=== PATIENT | male | born 1970 | race Hispanic/Latino ===

== ENCOUNTER 2017-02-10 06:10 | Day surgery (SDC) | payer MEDICAID ==
[2017-02-10 06:35] VITALS: BMI 19.8
[2017-02-10] MEDS ORDERED: Lactated Ringer's 500 ML IV SCH (08:00)
[2017-02-10] MEDS ORDERED: Propofol 10 mg/ml Inj (20 ML) ONE ×3 (08:02→08:36)
[2017-02-10 09:16] VITALS: RESP 16; TEMP 97.8
[2017-02-10 09:46] VITALS: O2SAT 100
[2017-02-10 10:12] VITALS: BP 101/62; PULSE 57
== END 2017-02-10 10:07 | disposition home or self-care (01) ==
LOC: C.ENDO 06:10
PROVIDERS: ATTEND Internal Medicine
DX: K86.1 Other chronic pancreatitis (principal); K29.70 Gastritis, unspecified, without bleeding
CPT/HCPCS: 43237; J2704; J3010; J7120

== ENCOUNTER 2017-02-27 06:57 | Inpatient (IN) | payer MEDICAID ==
[2017-02-27 06:57] VITALS: BMI 19.8
--- NOTE | 2017-02-27 07:33 | C.PDOC ---
History Of Present Illness 46 y/o male with cad, s/p 2 stents in October 2016, hx etoh abuse (stopped drinking) and chronic pancreatitis presents with mild epigastric pain. denies cp and sob. pt for admission for treatment with integrillin pre-precedure tomorrow for pancreatic biopsy. no fever or chills. Time Seen by Provider: 02/27/17 07:11 Chief Complaint (Nursing): Abdominal Pain History Per: Patient History/Exam Limitations: no limitations Current Symptoms Are (Timing): Still Present Severity: Mild Pain Scale Rating Of: 3 Location Of Pain/Discomfort: Epigastric Radiation Of Pain To:: None Quality Of Discomfort: Sharp Associated Symptoms: denies: Fever, Chills, Nausea, Vomiting, Diarrhea Recent travel outside of the [place]: No Past Medical History Reviewed: Historical Data, Nursing Documentation, Vital Signs Vital Signs: Last Vital Signs Temp 98.5 F 02/27/17 07:05 Pulse 64 02/27/17 07:05 Resp 20 02/27/17 07:05 BP 117/70 02/27/17 07:05 Pulse Ox 100 02/27/17 07:41 - Medical History PMH: CAD, Hypercholesterolemia, Pancreatitis (2013) Denies: HIV, Chronic Kidney Disease Surgical History: Coronary Stent (x2) - [facility] Procedures ALCOHOL DETOXIFICATION (10/06/13) DILATION OF 1 COR ART WITH 2 DRUG-ELUT, PERC APPROACH (09/30/16) FLUOROSCOPY OF LEFT HEART USING LOW OSMOLAR CONTRAST (09/30/16) FLUOROSCOPY OF MULT COR ART USING L OSM CONTRAST (09/30/16) MEASURE OF CARDIAC SAMPL & PRESSURE, L HEART, PERC APPROACH (09/30/16) Family History: States: Unknown Family Hx - Social History Hx Tobacco Use: Yes Hx Alcohol Use: No (stopped) Hx Substance Use: No - Immunization History Hx Influenza Vaccination: No Review Of Systems Constitutional: Negative for: Fever, Chills Cardiovascular: Negative for: Chest Pain, Palpitations Respiratory: Negative for: Cough, Shortness of Breath Gastrointestinal: Positive for: Abdominal Pain (mild, epigastric). Negative for : Nausea, Vomiting Genitourinary: Negative for: Dysuria Neurological: Negative for: Weakness, Numbness Physical Exam - Physical Exam Appears: Non-toxic, No Acute Distress Skin: Normal Color, Warm, Dry Head: Atraumatic, Normacephalic Eye(s): bilateral: Normal Inspection Teeth: Other (poor dentition, partly edentulous) Cardiovascular: Rhythm Regular, No Murmur Respiratory: Normal Breath Sounds, No Accessory Muscle Use, No Rales, No Rhonchi , No Wheezing Gastrointestinal/Abdominal: Bowel Sounds, Soft, Tenderness (minimal tenderness in epgastric area), No Distention, No Guarding, No Rebound Extremity: Normal ROM, No Pedal Edema, No Calf Tenderness Neurological/Psych: Oriented x3, Normal Speech, Normal Cognition ED Course And Treatment - Laboratory Results Result Diagrams: 02/27/17 07:44 02/27/17 08:29 O2 Sat by Pulse Oximetry: 100 Medical Decision Making Medical Decision Making: discussed with Dr Sesay pt to be admitted to hospitalist for treatment with integrillin prior to pancreatic biopsy. Disposition Discussed With : Benita Pickering Doctor Will See Patient In The: Hospital - Disposition Disposition: HOSPITALIZED Disposition Time: 09:26 Condition: STABLE Forms: [facility]- [employer] [employer] [facility] (Nicaraguan) - Clinical Impression Clinical Impression: Abdominal pain, Pancreatic abnormality Decision To Admit - Pt Status Changed To: Hospital Disposition Of: Inpatient - Admit Certification Admit to Inpatient:: After my assessment, the patient will require hospitalization for at least two midnights. This is because of the severity of symptoms shown, intensity of services needed, and/or the medical risk in this patient being treated as an outpatient. - InPatient: Physician Admission Certification:: pt requires iv integrillin pre-procedure - . Bed Request Type: Telemetry Patient Diagnosis: Abdominal pain, Pancreatic abnormality
[2017-02-27 07:54] LABS: BASO # 0.1 K/uL (0.0-0.2); BASO % 0.8 % (0.0-2.0); EOS # 0.3 K/uL (0.0-0.7); EOS % 3.4 % (0.0-4.0); LYMPH # 4.3 K/uL (1.0-4.3); LYMPH % 43.3 % (20.0-40.0); MEAN CELL VOLUME 87.3 fL (80.0-94.0); MEAN CORPUSCULAR HEMOGLOBIN 28.9 pg (27.0-31.0); MEAN CORPUSCULAR HGB CONC 33.1 g/dL (33.0-37.0); MEAN PLATELET VOLUME 9.7 fL (7.2-11.7); MONO # 0.9 K/uL (0.0-0.8); MONO % 8.9 % (0.0-10.0); RED CELL DISTRIBUTION WIDTH 13.7 % (11.5-14.5); WHITE BLOOD COUNT 9.9 K/uL (4.8-10.8)
[2017-02-27 08:41] LABS: CHLORIDE 100 mmol/L (98-107)
[2017-02-27 08:42] LABS: POTASSIUM 3.7 mmol/L (3.6-5.2); SODIUM 142 mmol/L (132-148)
[2017-02-27 08:44] LABS: ALB/GLOB RATIO 1.3 (1.0-2.1); ALKALINE PHOSPHATASE 78 U/L (38-126); ALT/SGPT 26 U/L (21-72); AST/SGOT 19 U/L (17-59); BILIRUBIN,TOTAL 0.4 mg/dL (0.2-1.3); BLOOD UREA NITROGEN 9 mg/dL (9-20); CARBON DIOXIDE 29 mmol/L (22-30); GFR AFRICAN-AMERICAN > 60; GLUCOSE,RANDOM 95 mg/dL (75-110); TOTAL PROTEIN 6.8 g/dL (6.3-8.3)
[2017-02-27 08:45] LABS: CALCIUM 8.4 mg/dl (8.6-10.4)
[2017-02-27 09:20] LABS: CA 19-9 7.1 U/mL (0-37)
[2017-02-27] MEDS ORDERED: Eptifibatide 20 mg/10mL Inj IVP ONE (09:37)
[2017-02-27] MEDS ORDERED: Sodium Chloride 0.9% 500 ML IV ONE ×2 (10:00→10:06)
--- NOTE | 2017-02-27 10:12 | CP.PCM.PN ---
Subjective - Date & Time of Evaluation Date of Evaluation: 02/27/17 Time of Evaluation: 10:10 - Subjective Subjective: Medicine Note- Dr Pickering's service 46 year old male with PMHx of CAD s/p IN with stents, hx of past EtOH abuse, pancreatitis, and pancreatic mass presents to the ED for administration of integrillin for pancreatic biopsy tomorrow. Patient has been following with GI Dr Sesay as outpatient and is scheduled for procedure tomorrow with him. The patient stopped taking his Brilinta 4 days ago as instructed. Per patient, he was told by GI that he has a pancreatic mass on the tail of his pancreas that needs further workup. Patient currently denies abdominal pain, chest pain, nauesa, vomiting, diarrhea, palpitations, dizziness, headache, focal weakness, difficulty ambulating, change in vision, and recent illness. GI: Dr Sesay Cardio: Dr Lees PMHx: Pancreatitis, CAD (with 2 stents placed in 09/2016), hx EtOH abuse, tobacco abuse Meds: Lisinopril 2.5mg PO daily, ASA 81mg PO daily, Brilinta 90mg PO BID, Creon [id number] TID, Zofran 4mg PO prn nausea, Crestor 20mg PO HS, Ultram 50mg PO q8h prn pain Surgical Hx: Cath with [address] at [facility] 09/2016 Social Hx: Tobacco- smokes 1/2ppd x 25 years; Former EtOH Abuser (quit 1 year ago); denies illicit drug use. Works in general construction. Allergies: NKDA Objective - Vital Signs/Intake and Output Vital Signs (last 24 hours): Temp Pulse Resp BP Pulse Ox 98.5 F 59 L 19 97/68 L 98 02/27/17 07:05 02/27/17 09:56 02/27/17 09:56 02/27/17 09:56 02/27/17 09:56 - Medications Medications: Current Medications Eptifibatide (Integrilin) 75 mg in 100 mls @ 10.897 mls/hr IV .Q9H11M [facility] PRN Reason: 2 MCG/KG/MIN Sodium Chloride (Sodium Chloride 0.9%) 500 mls @ 1,000 mls/hr IV .Q30M ONE Stop: 02/27/17 10:35 Last Admin: 02/27/17 10:00 Dose: 1,000 mls/hr - Labs Labs: PT 10.8 SECONDS (9.7-12.2) 02/27/17 07:44 INR 1.0 02/27/17 07:44 APTT 33 SECONDS (21-34) 02/27/17 07:44 - Constitutional Appears: Non-toxic, No Acute Distress - Head Exam Head Exam: ATRAUMATIC, NORMOCEPHALIC - Eye Exam Eye Exam: EOMI, Normal appearance, PERRL Pupil Exam: NORMAL ACCOMODATION - ENT Exam ENT Exam: Mucous Membranes Moist, Normal Exam - Neck Exam Neck Exam: Normal Inspection - Respiratory Exam Respiratory Exam: Clear to Ausculation Bilateral, NORMAL BREATHING PATTERN. absent: Rales, Rhonchi, Wheezes, Respiratory Distress - Cardiovascular Exam Cardiovascular Exam: REGULAR RHYTHM, +S1, +S2. absent: Bradycardia, Tachycardia , Irregular Rhythm, Murmur - GI/Abdominal Exam GI & Abdominal Exam: Soft, Tenderness (mild ttp in left lower quadrant ), Normal Bowel Sounds. absent: Distended, Firm, Guarding, Rigid - Extremities Exam Extremities Exam: Full ROM, Normal Inspection. absent: Joint Swelling, Pedal Edema, Tenderness - Back Exam Back Exam: NORMAL INSPECTION - Neurological Exam Neurological Exam: Alert, Awake, CN II-XII Intact, Oriented x3 - Psychiatric Exam Psychiatric exam: Normal Affect, Normal Mood - Skin Skin Exam: Dry, Intact, Normal Color, Warm Assessment and Plan - Assessment and Plan (Free Text) Assessment: 1. Pancreatic mass * GI Dr Sesay consulted- pt pending biopsy of pancreatic mass tomorrow. Will follow up recommendations. * NPO after dinner tonight * Pt on IV Integrilin for antiplatelet therapy * Lipase elevated 2. CAD s/p IN with 2 stents * Dr Lees consulted for pre-operative cardiac clearance- help appreciated, will f/u recommendations * Continue holding Brilinta for invasive procedure. Will f/u with hole digger operator regarding post-op antiplatelet therapy. * EKG: NSR, no acute ischemic changes * 09/30/16 ECHO reviewed- LV EF >65% * Hold ASA for procedure * Continue Lisinopril and Crestor 3. Tobacco use disorder * Counseled on smoking cessation * Nicotine patch TD daily 4. Prophylactic measures * Hold chemical anticoagulation until cleared by GI/Cardio * SCDs * Activity as tolerated * Pepcid 20mg PO BID
[2017-02-27] MEDS: Eptifibatide 0.75 mg/ml 75 MG/100 ML BOTTLE IV SCH ×2 (10:38→18:26)
--- NOTE | 2017-02-27 12:42 | CP.PCM.CON ---
History of Present Illness - History of Present Illness History of Present Illness: 46 y/o chronic smoker, poor dentition and history of pancreatitis in past presents with hx of abdominal pain and pancreatic mass which will need GI invasive evaluation and biopsy. In september Presented with acute [facility] EKG showed infero-posterior STEMI and had urgent cath showing: LM: Normal LAD: luminal irregularities LCX: SUB total occlusion of the distal LCX with AUREA 1-2 flow distally RCA: non-dominant EF: Low normal 50-55% He was RX:with a 2 KATE stents ([id number] xience, 3.0x15 xience) Post procedure results showed well apposed stents with excellent AUREA [address] elevation and CP. He has been on DAPT with ASA and Brillinta for his prior stent and has dc'd it for the past 4 days in anticipation for GI invasive procedure. Integrilin has been started as a means to continue anti-platelet inhibition. Review of Systems - Review of Systems All systems: reviewed and no additional remarkable complaints except Past Patient History - Past Medical History & Family History Past Medical History?: Yes - Past Social History Smoking Status: Light Smoker < 10 Cigarettes Daily - CARDIAC Hx Hypercholesterolemia: Yes - PULMONARY Hx Respiratory Disorders: No - NEUROLOGICAL Hx Neurological Disorder: No - HEENT Hx HEENT Problems: No - RENAL Hx Chronic Kidney Disease: No - ENDOCRINE/METABOLIC Hx Endocrine Disorders: No - HEMATOLOGICAL/ONCOLOGICAL Hx Human Immunodeficiency Virus (HIV): No - INTEGUMENTARY Hx Dermatological Problems: No - MUSCULOSKELETAL/RHEUMATOLOGICAL Hx Musculoskeletal Disorders: No Hx Falls: No - GASTROINTESTINAL Hx Pancreatitis: Yes (2014) - GENITOURINARY/GYNECOLOGICAL Hx Genitourinary Disorders: No - PSYCHIATRIC Hx Substance Use: No - SURGICAL HISTORY Hx Coronary Stent: Yes (x2) - ANESTHESIA Hx Anesthesia: No Hx Anesthesia Reactions: No Meds Allergies/Adverse Reactions: Allergies Allergy/AdvReac Type Severity Reaction Status Date / Time No Known Allergies Allergy Verified 02/27/17 07:06 - Medications Medications: Current Medications Famotidine (Pepcid) 20 mg PO BID [facility] Home Med (Lipase/Protease/Amylase [Atilio Thapa 36,000 Units Capsule]) 1 each PO TID [facility] Eptifibatide (Integrilin) 75 mg in 100 mls @ 10.897 mls/hr IV .Q9H11M [facility] PRN Reason: 2 MCG/KG/MIN Stop: 02/28/17 02:00 Last Admin: 02/27/17 10:38 Dose: 10.897 mls/hr Lisinopril (Zestril) 2.5 mg PO DAILY [facility] Ondansetron HCl (Zofran Inj) 4 mg IVP Q6 PRN PRN Reason: Nausea/Vomiting Rosuvastatin Calcium (Crestor) 20 mg PO HS [facility] Physical Exam - Constitutional Appears: No Acute Distress - Head Exam Head Exam: ATRAUMATIC, NORMAL INSPECTION, NORMOCEPHALIC - Eye Exam Eye Exam: EOMI, Normal appearance, PERRL - ENT Exam ENT Exam: absent: Normal Oropharynx (poor dentition) - Neck Exam Neck exam: Positive for: Full Rom. Negative for: Tenderness, Thyromegaly - Respiratory Exam Respiratory Exam: Clear to Auscultation Bilateral. absent: Rhonchi, Wheezes - Cardiovascular Exam Cardiovascular Exam: REGULAR RHYTHM, +S1, +S2. absent: +S4, Systolic Murmur - GI/Abdominal Exam GI & Abdominal Exam: Normal Bowel Sounds, Soft. absent: Organomegaly - Extremities Exam Extremities exam: Positive for: normal inspection. Negative for: calf tenderness, pedal edema - Neurological Exam Neurological exam: Alert, Normal Gait, Oriented x3 - Psychiatric Exam Psychiatric exam: Normal Affect, Normal Mood - Skin Skin Exam: Normal Color, Warm Results - Vital Signs Recent Vital Signs: Last Vital Signs Temp 97.8 F 02/27/17 11:55 Pulse 54 L 02/27/17 11:55 Resp 16 02/27/17 11:55 BP 109/73 02/27/17 11:55 Pulse Ox 100 02/27/17 11:55 - Labs Result Diagrams: 02/27/17 07:44 02/27/17 08:29 - EKG Data EKG Interpreted by: Myself EKG shows normal: Sinus rhythm (No acute ischemic changes) Assessment & Plan - Assessment and Plan (Free Text) Assessment: 1. Preoperative eval for managment of anti-platelet therapy due to presence of drug eluting stent since Sep 2016 (After Acute inf-posterior STEMI) 2. Pancreatic lesion needing invasive GI eval and possible biopsy 3. No CP or CHF on exam: Known normal LV function 4. EKG: NSR, no acute ischemic changes 5. H/H and renal function WNL; inc Lipase; normal AST/ALT Plan: > Cont integrilin infusion: D/C 6 hours prior to planned GI procedure and resume 6 hours post procedure if clinically safe. > I suggest ASA 81 be continued if ok with GI > BP is normal ; but suggest metoprolol 25 daily given [place] < 1year ago > Continue Statin therapy and GI prophylaxis > Brillinta will need to be reloaded when he is ok to take prior to D/C.
[2017-02-27] MEDS ORDERED: PROTEASE PO SCH (14:00)
[2017-02-27] MEDS ORDERED: LIPASE PO SCH (14:00)
[2017-02-27] MEDS ORDERED: AMYLASE PO SCH (14:00)
--- NOTE | 2017-02-27 14:44 | CP.PCM.CON ---
<Latonya Tripp - Last Filed: 02/27/17 14:45> History of Present Illness - History of Present Illness History of Present Illness: GI Fellow PGY4 Consult Note This is a 46yM with pmhx significant for EtOH abuse, multiple prior episodes of alcohol induced pancreatitis, CAD, SD s/p PCI with 2 stents placed in October 2016 , admitted for pancreatic tail mass. He denies any recent EtOH use and has been sober for 16 months. Pt does report weight loss of 12pounds over 2 months as food intake would cause abdominal pain, however says he is eating better now as pain is not as severe. Pt had EUS on 02/10/17 and found to have an irregular mass in pancreatic tail, hypoechoic [id number]. At that time, no biopsy was done since pt was on Brillinta therapy for cardiac stents. Pt is now admitted for EUS tomorrow in coordination with Cardiology. Pt's Brillinta as been on hold (pt 's last dose Friday), Integrilin has been started as a means to continue anti- platelet inhibition which will be stopped 6hrs prior to procedure. PMHx: See HPI PSHx: PCI with 2 stents placed October 2016 FHx: Mother -DM, HTN; Father -DM, HTN SHx: 1/2ppd for 20yrs, sober 16 months-used to drink [id number] cans of beer everyday for 5 years Past Patient History - Past Medical History & Family History Past Medical History?: Yes - Past Social History Smoking Status: Light Smoker < 10 Cigarettes Daily - CARDIAC Hx Hypercholesterolemia: Yes - PULMONARY Hx Respiratory Disorders: No - NEUROLOGICAL Hx Neurological Disorder: No - HEENT Hx HEENT Problems: No - RENAL Hx Chronic Kidney Disease: No - ENDOCRINE/METABOLIC Hx Endocrine Disorders: No - HEMATOLOGICAL/ONCOLOGICAL Hx Human Immunodeficiency Virus (HIV): No - INTEGUMENTARY Hx Dermatological Problems: No - MUSCULOSKELETAL/RHEUMATOLOGICAL Hx Falls: No - GASTROINTESTINAL Hx Pancreatitis: Yes (2013) - GENITOURINARY/GYNECOLOGICAL Hx Genitourinary Disorders: No - PSYCHIATRIC Hx Substance Use: No - SURGICAL HISTORY Hx Coronary Stent: Yes (x2) - ANESTHESIA Hx Anesthesia: Yes Hx Anesthesia Reactions: No Meds Allergies/Adverse Reactions: Allergies Allergy/AdvReac Type Severity Reaction Status Date / Time No Known Allergies Allergy Verified 02/27/17 07:06 - Medications Medications: Current Medications Famotidine (Pepcid) 20 mg PO BID [facility] Eptifibatide (Integrilin) 75 mg in 100 mls @ 10.897 mls/hr IV .Q9H11M [facility] PRN Reason: 2 MCG/KG/MIN Stop: 02/28/17 02:00 Last Admin: 02/27/17 10:38 Dose: 10.897 mls/hr Lisinopril (Zestril) 2.5 mg PO DAILY [facility] Ondansetron HCl (Zofran Inj) 4 mg IVP Q6 PRN PRN Reason: Nausea/Vomiting Rosuvastatin Calcium (Crestor) 20 mg PO HS [facility] Physical Exam - Constitutional Appears: Non-toxic, No Acute Distress Additional comments: Thin - Head Exam Head Exam: ATRAUMATIC, NORMAL INSPECTION, NORMOCEPHALIC - Eye Exam Eye Exam: EOMI, Normal appearance, PERRL Pupil Exam: PERRL - ENT Exam ENT Exam: Mucous Membranes Moist, Normal Exam, Normal External Ear Exam Additional comments: Poor dentition - Neck Exam Neck exam: Positive for: Full Rom, Normal Inspection - Respiratory Exam Respiratory Exam: Clear to Auscultation Bilateral, NORMAL BREATHING PATTERN - Cardiovascular Exam Cardiovascular Exam: RRR, +S1, +S2 - GI/Abdominal Exam GI & Abdominal Exam: Normal Bowel Sounds, Soft. absent: Organomegaly, Tenderness - Rectal Exam Rectal Exam: Deferred - Extremities Exam Extremities exam: Positive for: full ROM, normal inspection. Negative for: pedal edema - Back Exam Back exam: NORMAL INSPECTION - Neurological Exam Neurological exam: Alert, Oriented x3 - Psychiatric Exam Psychiatric exam: Normal Affect, Normal Mood - Skin Skin Exam: Dry, Intact, Normal Color, Warm Results - Vital Signs Recent Vital Signs: Last Vital Signs Temp 98.1 F 02/27/17 13:01 Pulse 59 L 02/27/17 13:01 Resp 18 02/27/17 13:01 BP 124/73 02/27/17 13:01 Pulse Ox 98 02/27/17 13:01 - Labs Result Diagrams: 02/27/17 07:44 02/27/17 08:29 Assessment & Plan - Assessment and Plan (Free Text) Assessment: This is a 46yM with recurrent pancreatitis from alcohol abuse, found to have pancreatic tail mass admitted for pancreatic biopsy. 1. Pancreatic Tail Mass 2. Hx of recurrent pancreatitis 3. SD s/p 2 cardiac stents Plan: -Pt on IV Integrilin for antiplatelet therapy which will be stopped at 2am, 6hrs prior to procedure scheduled for 8am, this was discussed with Nurse as well as Pharmacy -NPO after midnight, EUS in am -Check labs in am including PT/INR -Cardiology following with antiplatelet therapy-appreciate recommendations <Giovani Quintero - Last Filed: 02/27/17 17:03> Meds - Medications Medications: Current Medications Famotidine (Pepcid) 20 mg PO BID [facility] Eptifibatide (Integrilin) 75 mg in 100 mls @ 10.897 mls/hr IV .Q9H11M [facility] PRN Reason: 2 MCG/KG/MIN Stop: 02/28/17 02:00 Last Admin: 02/27/17 10:38 Dose: 10.897 mls/hr Lisinopril (Zestril) 2.5 mg PO DAILY [facility] Nicotine (Nicoderm Cq) 1 patch TD DAILY [facility] Ondansetron HCl (Zofran Inj) 4 mg IVP Q6 PRN PRN Reason: Nausea/Vomiting Rosuvastatin Calcium (Crestor) 20 mg PO HS [facility] Results - Vital Signs Recent Vital Signs: Last Vital Signs Temp 98 F 02/27/17 16:31 Pulse 53 L 02/27/17 16:31 Resp 20 02/27/17 16:31 BP 129/74 02/27/17 16:31 Pulse Ox 98 02/27/17 16:31 - Labs Result Diagrams: 02/27/17 07:44 02/27/17 08:29 Attending/Attestation - Attestation I have personally seen and examined this patient.: Yes I have fully participated in the care of the patient.: Yes I have reviewed all pertinent clinical information: Yes Notes (Text): 02/27/17 16:57 I have seen and examined patient with GI fellow. Agree with above documentation with the following additions. In brief, this is a 46 year old male with history of ETOH abuse, pancreatitis, SD s/p PCI in October 2016 who presents for further evaluation of pancreatic mass lesion found on recent outpatient EUS examination. He admits to ongoing epigastric abdominal pain that has become worse over the past one month which is exacerbated by food consumption. As a result he has become fearful of eating and has lost 10 pounds. He denies nausea, vomiting, diarrhea, fever/chills, or change in bowel habits. During recent EUS patient was on brilinta and FNA of lesion was not able to be performed. ETOH abuse (sober past 16 months) Chronic pancreatitis with recently diagnosed mass lesion CAD/SD s/p PCI on brilinta - Diet as tolerated - Cardiology note reviewed, patient to be placed on Integrilin while in hospital in preparation for planned procedure tomorrow - Obtain INR - NPO after midnight - Further plan pending results of endoscopic examination
--- NOTE | 2017-02-27 16:44 | HP ---
HISTORY OF PRESENT ILLNESS: Mr. Miller is a 46-year-old male *------* evaluation of pancreatic mass. The patient has a history of coronary artery disease and pancreatitis. The patient had stents in the past. He is using Brilinta and aspirin. Because of the biopsy, the patient will be requiring to be on IV Integrilin. The patient is a smoker. The patient used to drink and he stopped drinking after a flare of pancreatitis *------*. PHYSICAL EXAMINATION: GENERAL: The patient is awake, alert, and oriented. VITAL SIGNS: Temperature is 98, pulse 90. HEENT: Within normal limits. NECK: Supple. CHEST: Symmetrical. HEART: Regular. ABDOMEN: Soft. EXTREMITIES: No edema. IMPRESSION: History of a pancreatic mass, coronary artery disease, pancreatitis. PLAN: At this time, continue with IV Integrilin. We will hold the aspirin and Brilinta. Benita Pickering MD
[2017-02-28] MEDS ORDERED: Midazolam 2 MG/2 ML VIAL ONE (07:59)
[2017-02-28] MEDS ORDERED: Propofol 10 mg/ml Inj (20 ML) ONE ×4 (07:59→10:10)
[2017-02-28] MEDS ORDERED: Lidocaine 4% (Laryng-O-Jet) Kit MM ONE (08:02)
[2017-02-28 08:03] LABS: HEMATOCRIT 44.4 % (35.0-51.0); MEAN CORPUSCULAR HEMOGLOBIN 29.2 pg (27.0-31.0); MEAN CORPUSCULAR HGB CONC 33.1 g/dL (33.0-37.0); MEAN PLATELET VOLUME 9.8 fL (7.2-11.7); RED CELL DISTRIBUTION WIDTH 14.1 % (11.5-14.5); WHITE BLOOD COUNT 9.4 K/uL (4.8-10.8)
[2017-02-28] MEDS ORDERED: Etomidate 20 mg/10ml Inj IV ONE (08:08)
[2017-02-28 08:10] LABS: CHLORIDE 98 mmol/L (98-107); POTASSIUM 4.2 mmol/L (3.6-5.2); SODIUM 143 mmol/L (132-148)
[2017-02-28 08:12] LABS: BILIRUBIN,TOTAL 0.6 mg/dL (0.2-1.3); GFR AFRICAN-AMERICAN > 60
[2017-02-28 08:13] LABS: ALB/GLOB RATIO 1.2 (1.0-2.1); ALKALINE PHOSPHATASE 83 U/L (38-126); ALT/SGPT 28 U/L (21-72); AST/SGOT 25 U/L (17-59); BLOOD UREA NITROGEN 11 mg/dL (9-20); CARBON DIOXIDE 31 mmol/L (22-30); GLUCOSE,RANDOM 94 mg/dL (75-110); TOTAL PROTEIN 7.6 g/dL (6.3-8.3)
[2017-02-28 08:14] LABS: CALCIUM 8.9 mg/dl (8.6-10.4)
[2017-02-28] MEDS ORDERED: ePHEDrine 50 mg/ml Inj ONE (08:44)
[2017-02-28] MEDS ORDERED: Esmolol 100 mg/10ml Inj IV ONE (08:44)
[2017-02-28] MEDS ORDERED: Phenylephrine 10 mg/ml Inj ONE (08:44)
[2017-02-28] MEDS ORDERED: Lactated Ringer's 1,000 ML IV ONE (09:14)
--- NOTE | 2017-02-28 11:21 | CP.PCM.PN ---
Subjective - Date & Time of Evaluation Date of Evaluation: 02/28/17 Time of Evaluation: 11:21 - Subjective Subjective: S/P ERCP/EUS for pancreatic mass Reports no unexpected complaints H/H remains normal Vitals stable *Integrelin was stopped 6 hours prior to procedure. Objective - Vital Signs/Intake and Output Vital Signs (last 24 hours): Temp Pulse Resp BP Pulse Ox 97 F L 51 L 15 139/69 100 02/28/17 09:54 02/28/17 09:54 02/28/17 09:54 02/28/17 09:54 02/28/17 09:54 Intake and Output: 02/28/17 02/28/17 06:59 18:59 Intake Total 488 Output Total 1100 Balance -612 - Medications Medications: Current Medications Famotidine (Pepcid) 20 mg PO BID [facility] Last Admin: 02/28/17 11:00 Dose: 20 mg Lisinopril (Zestril) 2.5 mg PO DAILY [facility] Last Admin: 02/28/17 11:00 Dose: 2.5 mg Nicotine (Nicoderm Cq) 1 patch TD DAILY [facility] Last Admin: 02/28/17 11:00 Dose: 1 patch Ondansetron HCl (Zofran Inj) 4 mg IVP Q6 PRN PRN Reason: Nausea/Vomiting Last Admin: 02/28/17 11:00 Dose: 4 mg Rosuvastatin Calcium (Crestor) 20 mg PO HS [facility] Last Admin: 02/27/17 22:44 Dose: 20 mg - Labs Labs: 02/28/17 07:54 02/28/17 07:54 PT 11.4 SECONDS (9.7-12.2) 02/28/17 07:54 INR 1.0 02/28/17 07:54 APTT 33 SECONDS (21-34) 02/27/17 07:44 - Constitutional Appears: No Acute Distress - Head Exam Head Exam: ATRAUMATIC, NORMAL INSPECTION, NORMOCEPHALIC - Eye Exam Eye Exam: EOMI, Normal appearance, PERRL - ENT Exam ENT Exam: Mucous Membranes Moist - Respiratory Exam Respiratory Exam: Clear to Ausculation Bilateral. absent: Rhonchi, Wheezes - Cardiovascular Exam Cardiovascular Exam: REGULAR RHYTHM, +S1, +S2. absent: +S4, Murmur - Extremities Exam Extremities Exam: Normal Inspection. absent: Calf Tenderness - Neurological Exam Neurological Exam: Alert, Awake, Oriented x3 - Skin Skin Exam: Normal Color, Warm Assessment and Plan - Assessment and Plan (Free Text) Assessment: 1. Preoperative eval for managment of anti-platelet therapy due to presence of drug eluting stent since Sep 2016 (After Acute inf-posterior STEMI) 2. Pancreatic lesion needing invasive GI eval and possible biopsy: no POD#0 3. No CP or CHF on exam: Known normal LV function 4. EKG: NSR, no acute ischemic changes 5. H/H and renal function WNL; inc Lipase; normal AST/ALT Plan: > No bj-operative complications noted: > I suggest ASA 81 and brillinta load 180mg x1 at 3:00pm today then resume ASA 81 daily and brillinta 90 BID > BP is normal ; but suggest metoprolol 25 daily given [place] < 1year ago > Continue Statin therapy and GI prophylaxis > D/C planning in AM after routine re-eval and no signs of bleeding.
--- NOTE | 2017-02-28 11:41 | CP.PCM.PN ---
Subjective - Date & Time of Evaluation Date of Evaluation: 02/28/17 Time of Evaluation: 11:20 - Subjective Subjective: Medicine Note- Dr Pickering's service Patient seen and examined s/p pancreatic biopsy this morning. Patient complaining of abdominal pain and states he feels tired. Denies chest pain, fever, shortness of breath, and headache. Objective - Vital Signs/Intake and Output Vital Signs (last 24 hours): Temp Pulse Resp BP Pulse Ox 97 F L 51 L 15 139/69 100 02/28/17 09:54 02/28/17 09:54 02/28/17 09:54 02/28/17 09:54 02/28/17 09:54 Intake and Output: 02/28/17 02/28/17 06:59 18:59 Intake Total 488 Output Total 1100 Balance -612 - Medications Medications: Current Medications Famotidine (Pepcid) 20 mg PO BID [facility] Last Admin: 02/28/17 11:00 Dose: 20 mg Lisinopril (Zestril) 2.5 mg PO DAILY [facility] Last Admin: 02/28/17 11:00 Dose: 2.5 mg Morphine Sulfate (Morphine) 2 mg IVP STAT STA Stop: 02/28/17 11:20 Nicotine (Nicoderm Cq) 1 patch TD DAILY [facility] Last Admin: 02/28/17 11:00 Dose: 1 patch Ondansetron HCl (Zofran Inj) 4 mg IVP Q6 PRN PRN Reason: Nausea/Vomiting Last Admin: 02/28/17 11:00 Dose: 4 mg Rosuvastatin Calcium (Crestor) 20 mg PO HS [facility] Last Admin: 02/27/17 22:44 Dose: 20 mg - Labs Labs: 02/28/17 07:54 02/28/17 07:54 PT 11.4 SECONDS (9.7-12.2) 02/28/17 07:54 INR 1.0 02/28/17 07:54 APTT 33 SECONDS (21-34) 02/27/17 07:44 - Constitutional Appears: Non-toxic, No Acute Distress - Head Exam Head Exam: ATRAUMATIC, NORMOCEPHALIC - Eye Exam Eye Exam: EOMI, Normal appearance - ENT Exam ENT Exam: Mucous Membranes Moist, Normal Exam - Neck Exam Neck Exam: Normal Inspection - Respiratory Exam Respiratory Exam: Clear to Ausculation Bilateral, NORMAL BREATHING PATTERN. absent: Rhonchi, Wheezes, Respiratory Distress - Cardiovascular Exam Cardiovascular Exam: REGULAR RHYTHM, +S1, +S2 - GI/Abdominal Exam GI & Abdominal Exam: Soft, Tenderness (ttp of upper abdomen ), Normal Bowel Sounds. absent: Distended, Firm, Guarding, Rigid - Extremities Exam Extremities Exam: Normal Inspection. absent: Pedal Edema - Neurological Exam Neurological Exam: Alert, Awake, Oriented x3 - Psychiatric Exam Psychiatric exam: Normal Affect, Normal Mood - Skin Skin Exam: Dry, Intact, Normal Color, Warm Assessment and Plan - Assessment and Plan (Free Text) Assessment: 1. Pancreatic mass * GI Dr Sesay consulted- POD #0 s/p biopsy of pancreatic mass in pancreatic tail. Awaiting biopsy results. * Per GI recommendations, may continue patient on antiplatelet therapy 6 hours after procedure. Start clear liquid diet and monitor overnight. * Lipase elevated * Morphine 2mg IV x1 for pain 2. CAD s/p GA with 2 stents * Dr Lees consulted for pre-operative cardiac clearance- help appreciated, will f/u recommendations * Held Brilinta for invasive procedure. Per GI recommendations, may continue patient on antiplatelet therapy 6 hours after procedure. Per meter installer and remover recs , start ASA 81 and brillinta load 180mg x1 at 3:00pm today then resume ASA 81 daily and brillinta 90 BID tomorrow. * EKG: NSR, no acute ischemic changes * 09/30/16 ECHO reviewed- LV EF >65% * Continue ASA * Continue Lisinopril and Crestor 3. Tobacco use disorder * Counseled on smoking cessation * Nicotine patch TD daily 4. Prophylactic measures * SCDs * Activity as tolerated * Pepcid 20mg PO BID
[2017-02-28 17:58] VITALS: RESP 20
[2017-03-01 04:47] VITALS: O2SAT 97
[2017-03-01 08:35] LABS: CHLORIDE 97 mmol/L (98-107); POTASSIUM 3.6 mmol/L (3.6-5.2); SODIUM 142 mmol/L (132-148)
[2017-03-01 08:37] LABS: GFR AFRICAN-AMERICAN > 60
[2017-03-01 08:38] LABS: ALB/GLOB RATIO 1.2 (1.0-2.1); ALKALINE PHOSPHATASE 91 U/L (38-126); ALT/SGPT 29 U/L (21-72); AST/SGOT 20 U/L (17-59); BILIRUBIN,TOTAL 0.8 mg/dL (0.2-1.3); BLOOD UREA NITROGEN 8 mg/dL (9-20); CALCIUM 8.6 mg/dl (8.6-10.4); CARBON DIOXIDE 30 mmol/L (22-30); GLUCOSE,RANDOM 108 mg/dL (75-110); TOTAL PROTEIN 7.1 g/dL (6.3-8.3)
[2017-03-01 08:40] LABS: BASO % 0.4 % (0.0-2.0); EOS # 0.2 K/uL (0.0-0.7); EOS % 1.5 % (0.0-4.0); HEMATOCRIT 43.1 % (35.0-51.0); LYMPH # 3.4 K/uL (1.0-4.3); LYMPH % 30.3 % (20.0-40.0); MEAN CELL VOLUME 87.2 fL (80.0-94.0); MEAN CORPUSCULAR HGB CONC 33.2 g/dL (33.0-37.0); MONO # 1.1 K/uL (0.0-0.8); MONO % 9.5 % (0.0-10.0); NRBC % 0.1 % (0.0-2.0); RED CELL DISTRIBUTION WIDTH 13.9 % (11.5-14.5); WHITE BLOOD COUNT 11.2 K/uL (4.8-10.8)
[2017-03-01 09:12] VITALS: BP 99/64; TEMP 98.1
[2017-03-01 11:25] VITALS: PULSE 68
--- NOTE | 2017-03-01 14:34 | CP.PCM.PN ---
<Tiannajesus manuelmillaÁlvaro - Last Filed: 03/01/17 14:31> Subjective - Date & Time of Evaluation Date of Evaluation: 03/01/17 Time of Evaluation: 12:15 - Subjective Subjective: PGY5 GI Fellow Progress Note Patient seen and examined bedside this morning. The patient states that he is feeling well and has no abdominal pain and has not noted any abnormal bleeding. He was resumed on Brillinta therapy yesterday by cardiology and is back on his regular dosing today. Eager to eat. 12 system ROS performed and negative except where stated. Objective - Vital Signs/Intake and Output Vital Signs (last 24 hours): Temp Pulse Resp BP Pulse Ox 98.1 F 68 20 99/64 L 97 03/01/17 08:00 03/01/17 08:00 03/01/17 08:00 03/01/17 08:00 03/01/17 08:00 - Medications Medications: Current Medications Aspirin (Ecotrin) 81 mg PO DAILY [facility] Last Admin: 03/01/17 09:20 Dose: 81 mg Famotidine (Pepcid) 20 mg PO BID [facility] Last Admin: 03/01/17 09:20 Dose: 20 mg Lisinopril (Zestril) 2.5 mg PO DAILY [facility] Last Admin: 03/01/17 09:20 Dose: Not Given Nicotine (Nicoderm Cq) 1 patch TD DAILY [facility] Last Admin: 03/01/17 09:20 Dose: 1 patch Ondansetron HCl (Zofran Inj) 4 mg IVP Q6 PRN PRN Reason: Nausea/Vomiting Last Admin: 02/28/17 11:00 Dose: 4 mg Rosuvastatin Calcium (Crestor) 20 mg PO HS [facility] Last Admin: 02/28/17 22:28 Dose: 20 mg Ticagrelor (Brilinta) 90 mg PO BID [facility] Last Admin: 03/01/17 09:20 Dose: 90 mg - Labs Labs: 03/01/17 08:19 03/01/17 08:19 PT 11.4 SECONDS (9.7-12.2) 02/28/17 07:54 INR 1.0 02/28/17 07:54 APTT 33 SECONDS (21-34) 02/27/17 07:44 - Constitutional Appears: Non-toxic, No Acute Distress - Eye Exam Eye Exam: EOMI, PERRL - ENT Exam ENT Exam: Mucous Membranes Moist - Respiratory Exam Respiratory Exam: Clear to Ausculation Bilateral. absent: Rales, Rhonchi, Wheezes - Cardiovascular Exam Cardiovascular Exam: RRR, +S1, +S2 - GI/Abdominal Exam GI & Abdominal Exam: Soft, Normal Bowel Sounds. absent: Distended, Firm, Guarding, Rigid, Tenderness, Organomegaly - Extremities Exam Extremities Exam: Normal Inspection. absent: Pedal Edema - Neurological Exam Neurological Exam: Alert, Awake, Oriented x3 - Psychiatric Exam Psychiatric exam: Normal Affect, Normal Mood - Skin Skin Exam: Dry, Warm Assessment and Plan - Assessment and Plan (Free Text) Assessment: Patient is a 46yo male with PMHx significant for ETOH abuse, EtOH pancreatitis, CAD and MA s/p PCI with 2 stents placed in 10/2016 who is admitted for pancreatic tail mass EUS/FNB. -Pancreatic tail mass -H/O MA with PCI in October 2016 Plan: -Patient doing well following procedure with no abnormal bleeding noted -HGB stable -Has been resumed on Brilinta therapy -Advance diet to heart healthy -OK to D/C from GI standpoint, outpt F/U with Dr Sesay on <[place] ORELLANA,Miguelito - Last Filed: 03/01/17 16:32> Objective - Vital Signs/Intake and Output Vital Signs (last 24 hours): Temp Pulse Resp BP Pulse Ox 98.1 F 68 20 99/64 L 97 03/01/17 08:00 03/01/17 08:00 03/01/17 08:00 03/01/17 08:00 03/01/17 08:00 - Medications Medications: Current Medications Aspirin (Ecotrin) 81 mg PO DAILY [facility] Last Admin: 03/01/17 09:20 Dose: 81 mg Famotidine (Pepcid) 20 mg PO BID [facility] Last Admin: 03/01/17 09:20 Dose: 20 mg Lisinopril (Zestril) 2.5 mg PO DAILY [facility] Last Admin: 03/01/17 09:20 Dose: Not Given Nicotine (Nicoderm Cq) 1 patch TD DAILY [facility] Last Admin: 03/01/17 09:20 Dose: 1 patch Ondansetron HCl (Zofran Inj) 4 mg IVP Q6 PRN PRN Reason: Nausea/Vomiting Last Admin: 02/28/17 11:00 Dose: 4 mg Rosuvastatin Calcium (Crestor) 20 mg PO HS [facility] Last Admin: 02/28/17 22:28 Dose: 20 mg Ticagrelor (Brilinta) 90 mg PO BID [facility] Last Admin: 03/01/17 09:20 Dose: 90 mg - Labs Labs: 03/01/17 08:19 03/01/17 08:19 PT 11.4 SECONDS (9.7-12.2) 02/28/17 07:54 INR 1.0 02/28/17 07:54 APTT 33 SECONDS (21-34) 02/27/17 07:44 Attending/Attestation - Attestation I have personally seen and examined this patient.: Yes I have fully participated in the care of the patient.: Yes I have reviewed all pertinent clinical information, including history, physical exam and plan: Yes Notes (Text): 03/01/17 16:31 Patient seen with GI fellow. This is a 46 yo male with PMHx significant for ETOH abuse, EtOH pancreatitis, CAD and MA s/p PCI with 2 stents placed in 2016 who is admitted for pancreatic tail mass s/p EUS/FNB. Anti platelet resumed. H/Hct stable. Diet as tolerated and to follow up as outpatient for biopsy results.
--- NOTE | 2017-03-01 16:20 | CP.PCM.PN ---
Subjective - Date & Time of Evaluation Date of Evaluation: 03/01/17 Time of Evaluation: 16:20 - Subjective Subjective: PT SEEN BY DR. CAMARILLO AND CLEARED FOR D/C HOME. CLEARED BY GI AND PT HAS SCHEDULED APPT WITH DR. VARGAS FOR THIS FRIDAY. PRODUCTION MATERIAL COORDINATOR DISCUSSED ALL D/C INFO AND HE IS IN AGREEMENT. NO FURTHER ORDERS. Objective - Vital Signs/Intake and Output Vital Signs (last 24 hours): Temp Pulse Resp BP Pulse Ox 98.1 F 68 20 99/64 L 97 03/01/17 08:00 03/01/17 08:00 03/01/17 08:00 03/01/17 08:00 03/01/17 08:00 - Medications Medications: Current Medications Aspirin (Ecotrin) 81 mg PO DAILY [facility] Last Admin: 03/01/17 09:20 Dose: 81 mg Famotidine (Pepcid) 20 mg PO BID [facility] Last Admin: 03/01/17 09:20 Dose: 20 mg Lisinopril (Zestril) 2.5 mg PO DAILY [facility] Last Admin: 03/01/17 09:20 Dose: Not Given Nicotine (Nicoderm Cq) 1 patch TD DAILY [facility] Last Admin: 03/01/17 09:20 Dose: 1 patch Ondansetron HCl (Zofran Inj) 4 mg IVP Q6 PRN PRN Reason: Nausea/Vomiting Last Admin: 02/28/17 11:00 Dose: 4 mg Rosuvastatin Calcium (Crestor) 20 mg PO HS [facility] Last Admin: 02/28/17 22:28 Dose: 20 mg Ticagrelor (Brilinta) 90 mg PO BID [facility] Last Admin: 03/01/17 09:20 Dose: 90 mg - Labs Labs: 03/01/17 08:19 03/01/17 08:19 PT 11.4 SECONDS (9.7-12.2) 02/28/17 07:54 INR 1.0 02/28/17 07:54 APTT 33 SECONDS (21-34) 02/27/17 07:44
--- NOTE | 2017-03-01 16:33 | CP.PCM.PN ---
Subjective - Date & Time of Evaluation Date of Evaluation: 03/01/17 Time of Evaluation: 16:31 - Subjective Subjective: S/P ERCP No bleeding Normal appetite No CP or SOB Back on ASA 81 and brillinta 90 BID Objective - Vital Signs/Intake and Output Vital Signs (last 24 hours): Temp Pulse Resp BP Pulse Ox 98.1 F 68 20 99/64 L 97 03/01/17 08:00 03/01/17 08:00 03/01/17 08:00 03/01/17 08:00 03/01/17 08:00 - Medications Medications: Current Medications Aspirin (Ecotrin) 81 mg PO DAILY [facility] Last Admin: 03/01/17 09:20 Dose: 81 mg Famotidine (Pepcid) 20 mg PO BID [facility] Last Admin: 03/01/17 09:20 Dose: 20 mg Lisinopril (Zestril) 2.5 mg PO DAILY [facility] Last Admin: 03/01/17 09:20 Dose: Not Given Nicotine (Nicoderm Cq) 1 patch TD DAILY [facility] Last Admin: 03/01/17 09:20 Dose: 1 patch Ondansetron HCl (Zofran Inj) 4 mg IVP Q6 PRN PRN Reason: Nausea/Vomiting Last Admin: 02/28/17 11:00 Dose: 4 mg Rosuvastatin Calcium (Crestor) 20 mg PO HS [facility] Last Admin: 02/28/17 22:28 Dose: 20 mg Ticagrelor (Brilinta) 90 mg PO BID [facility] Last Admin: 03/01/17 09:20 Dose: 90 mg - Labs Labs: 03/01/17 08:19 03/01/17 08:19 PT 11.4 SECONDS (9.7-12.2) 02/28/17 07:54 INR 1.0 02/28/17 07:54 APTT 33 SECONDS (21-34) 02/27/17 07:44 - Constitutional Appears: No Acute Distress - Eye Exam Eye Exam: EOMI, Normal appearance, PERRL - ENT Exam ENT Exam: Mucous Membranes Moist - Neck Exam Neck Exam: Full ROM - Respiratory Exam Respiratory Exam: Clear to Ausculation Bilateral, NORMAL BREATHING PATTERN - Cardiovascular Exam Cardiovascular Exam: REGULAR RHYTHM - GI/Abdominal Exam GI & Abdominal Exam: Soft, Normal Bowel Sounds. absent: Tenderness, Organomegaly - Extremities Exam Extremities Exam: Full ROM, Normal Inspection - Neurological Exam Neurological Exam: Alert, Awake, Oriented x3 - Skin Skin Exam: Normal Color, Warm Assessment and Plan - Assessment and Plan (Free Text) Assessment: 1. Preoperative eval for managment of anti-platelet therapy due to presence of drug eluting stent since Sep 2016 (After Acute inf-posterior STEMI) 2. Pancreatic lesion needing invasive GI eval and possible biopsy: no POD#1 3. No CP or CHF on exam: Known normal LV function 4. EKG: NSR, no acute ischemic changes 5. H/H and renal function WNL; inc Lipase; normal AST/ALT Plan: > No bj-operative complications noted: > Now back on usual DAPT with ASA 81 and Brillinta 90 BID > BP is normal ; but suggest metoprolol 25 daily given MO < 1year ago > Continue Statin therapy and GI prophylaxis > D/C planning and f/u with me as outpatient > Cleared by GI for DC
--- NOTE | 2017-03-10 09:30 | CARD ---
APPROVED REPORT EKG Measurement Heart [id number] <Conclusion> Sinus bradycardia [id number] Borderline ECG
== END 2017-03-01 16:45 | disposition home or self-care (01) | DRG 204 ==
LOC: C.ER 06:57 → C.9E 09:25 → C.6T 11:53
PROVIDERS: ADMIT Internal Medicine Pulmonary Disease; ATTEND Internal Medicine Pulmonary Disease
PROC: 0FBG4ZX Excision of Pancreas, Percutaneous Endoscopic Approach, Diagnostic (ICD-10-PCS; principal; 2017-02-28 08:05)
DX: K86.1 Other chronic pancreatitis (principal); F17.210 Nicotine dependence, cigarettes, uncomplicated; I25.10 Atherosclerotic heart disease of native coronary artery without angina pectoris; K29.70 Gastritis, unspecified, without bleeding; I25.2 Old myocardial infarction; Z95.5 Presence of coronary angioplasty implant and graft